=== PATIENT | male | born 1950 | race Caucasian/White ===

== ENCOUNTER 2019-06-25 06:13 | Inpatient (IN) | payer OTHER ==
[~2019-06-25] VITALS: Ht 175.3 cm; Wt 99.8 kg
[2019-06-25] MEDS ORDERED: LEVOFLOXACIN 500 MG/D5W 100 ML IV ONE (07:00)
[2019-06-25] MEDS ORDERED: fentaNYL CITRATE/PF 100 MCG/2 ML AMP IVP PRN ×2 (09:00)
[2019-06-25] MEDS ORDERED: ONDANSETRON HCL 4 MG/2 ML VIAL IVP PRN ×2 (09:00→15:15)
[2019-06-25] MEDS ORDERED: DEXAMETHASONE SOD PHOSPHATE 4 MG/ML VIAL ONE (11:35)
[2019-06-25] MEDS ORDERED: ROCURONIUM BROMIDE 10 MG/ML (ZEMURON) ONE (11:35)
[2019-06-25] MEDS ORDERED: MUPIROCIN 2% TOPICAL OINTMENT 22 GM ONE (11:35)
[2019-06-25] MEDS ORDERED: ONDANSETRON HCL 4 MG/2 ML VIAL ONE (11:35)
[2019-06-25] MEDS ORDERED: MIDAZOLAM HCL 5 MG/ML VIAL (VERSED) IV ONE (11:35)
[2019-06-25] MEDS ORDERED: PROPOFOL 200MG/ 20ML VIAL (DIPRIVAN) IV ONE (11:35)
[2019-06-25] MEDS ORDERED: fentaNYL CITRATE/PF 100 MCG/2 ML AMP ONE (11:35)
[2019-06-25] MEDS ORDERED: LR 1,000 ML IV.SOLN IV ONE (11:35)
[2019-06-25] MEDS ORDERED: SEVOFLURANE 15 MIN GAS INH ONE (11:35)
[2019-06-25 12:30] VITALS: BP_SYST 128
[2019-06-25 12:40] VITALS: BP_SYST 128
--- NOTE | 2019-06-25 12:40 | NUR ---
Notes- Received pt form Recovery awake, alert and oriented, Family at bedside. Dressing on the nose is dry and intact. Denies any pain at this time. Oriented to environment and call light use. Safety precaution observed. Enc. to call for help as needed. will monitor.
[2019-06-25] MEDS ORDERED: LOSA100T3 PO (12:51)
[2019-06-25] MEDS ORDERED: GLYB5TAB7 PO (12:51)
[2019-06-25] MEDS ORDERED: RANI-362 PO (12:51)
[2019-06-25] MEDS ORDERED: TAMS-11 PO (12:51)
[2019-06-25] MEDS ORDERED: GLUXR500 PO (12:51)
[2019-06-25] MEDS ORDERED: SOTA80TA PO (12:51)
[2019-06-25] MEDS ORDERED: ASPI-1153 PO (12:51)
[2019-06-25] MEDS ORDERED: LIP10 PO (12:51)
[2019-06-25 13:04] VITALS: BP_SYST 128
--- NOTE | 2019-06-25 14:48 | NUR ---
CONSULTATION PAGED/CALLED Reason for Consultation: [] AFIB Person Who was Notified: [] MARCOS Consulting Physician: [] DR Ander NOYOLA Franchise Specialist Specialty: [] CARDIO Ordering Physician: [] DR Tyson MCGOVERN
--- NOTE | 2019-06-25 15:00 | NUR ---
notes- started clear liquid, no nausea and vomiting noted.
[2019-06-25] MEDS ORDERED: traMADol HCL HCL 50 MG TABLET (ULTRAM) PO PRN ×2 (15:15)
[2019-06-25] MEDS ORDERED: DEXTROSE 50% JECT 50 ML DISP.SYRIN IVP PRN (15:15)
[2019-06-25] MEDS ORDERED: LACTOBACILLUS RHAMNOSUS GG 1 CAP CAPSULE PO ONE (15:15)
[2019-06-25] MEDS ORDERED: ACETAMINOPHEN 325 MG TABLET PO PRN (15:15)
[2019-06-25] MEDS ORDERED: AMOXICILLIN/CLAVULANATE POTASSIUM 875 MG TABLET PO ONE (15:15)
[2019-06-25] MEDS ORDERED: ZOLPIDEM TARTRATE 5 MG TABLET PO PRN (15:30)
--- NOTE | 2019-06-25 16:15 | NUR ---
Notes- Resting in bed, dressing on the nose is dry and intact. Denies any pain or discomfort at this time. Enc. to call for help as needed.
[2019-06-25 16:28] LABS: BASOPHILS % (AUTO) 0.1 % (0.0-2.0); HEMATOCRIT 38.8 % (36-54); LYMPHOCYTES # (AUTO) 0.8 K/uL (1.0-5.5); LYMPHOCYTES % (AUTO) 7.2 % (20.5-51.5); MEAN CORPUSCULAR HEMOGLOBIN 31 pg (27-31); MEAN CORPUSCULAR HGB CONC 34 % (32-36); MEAN CORPUSCULAR VOLUME 92 fL (79.0-98.0); MONOCYTES # (AUTO) 0.2 K/uL (0.0-1.0); MONOCYTES % (AUTO) 1.8 % (1.7-9.3); NEUTROPHILS # (AUTO) 10.6 K/uL (1.8-7.7); NEUTROPHILS % (AUTO) 90.9 % (40.0-70.0); PLATELET COUNT (AUTO) 184 K/uL (130-430); RED BLOOD CELL COUNT(AUTO) 4.22 MIL/uL (4.2-6.2); RED CELL DISTRIBUTION WIDTH 17.2 % (9.0-15.0); WHITE BLOOD COUNT (AUTO) 11.7 K/uL (4.8-10.8)
[2019-06-25 16:31] LABS: CALCIUM 8.9 mg/dL (8.4-11.0); CREATININE 1.8 mg/dL (0.55-1.30)
[2019-06-25 17:04] VITALS: BP_SYST 120
[2019-06-25] MEDS: glyBURIDE 5 MG TABLET PO SCH (17:19)
[2019-06-25] MEDS: metFORMIN HCL 500 MG TABLET PO SCH (17:19)
[2019-06-25] MEDS: INSULIN REGULAR, HUMAN 100 UNITS/ML, 10 ML VIAL (humuLIN R) SUBCUT PRN ×2 (17:21→20:45)
--- NOTE | 2019-06-25 18:35 | NUR ---
Notes- IN bed, dressing change on the nose. Noted small amount of blood. No active bleeding noted. Pain is controlled at this time. All needs meet. Will endorse.
[2019-06-25 19:55] VITALS: BP_SYST 135
--- NOTE | 2019-06-25 19:55 | NUR ---
INITIAL NOTES AT INITIAL ASSESSMENT, PATIENT IS RESTING IN BED, STABLE, NO SIGNS OF RESPIRATORY DISTRESS. PATIENT VERBALIZES NO PAIN. PLAN OF CARE FOR THE EVENING IS COMMUNICATED WITH THE PATIENT. PATIENT SUCCESSFULLY DEMONSTRATES USAGE OF CALL LIGHT AT THIS TIME. BED IS LOCKED, ALARMED, AND AT THE LOWEST LEVEL. FALL, SAFETY, RESPIRATORY, AND ASPIRATION PRECAUTIONS WILL BE TAKEN THROUGHOUT THE SHIFT.
[2019-06-25] MEDS: AMOXICILLIN/CLAVULANATE POTASSIUM 875 MG TABLET PO SCH (20:31)
[2019-06-25] MEDS: SOTALOL HCL 80 MG TABLET PO SCH (20:32)
[2019-06-25] MEDS: FAMOTIDINE 20 MG TABLET PO SCH (20:32)
[2019-06-25] MEDS: LACTOBACILLUS RHAMNOSUS GG 1 CAP CAPSULE PO SCH (20:32)
--- NOTE | 2019-06-25 21:55 | NUR ---
WOUND CARE & PICC LINE DRESSING CHANGE WOUND CARE PERFORMED AT THIS TIME, PATIENT TOLERATED WELL. HE IS REPOSITIONED FOR COMFORT. CALL LIGHT PLACED WITHIN REACH. BED IS LOCKED, ALARMED, AND AT THE LOWEST LEVEL.
--- NOTE | 2019-06-25 22:00 | NUR ---
INCENTIVE SPIROMETER TEACHING PATIENT SUCCESSFULLY DEMONSTRATES USAGE OF INCENTIVE SPIROMETER AT THIS TIME. HE IS AVERAGING AROUND 3000 ML, HE VERBALIZES KNOWLEDGE TO "PRACTICE 10 TIMES AN HOUR". WILL CONTINUE TO ENCOURAGE THROUGHOUT THE SHIFT. HIS OXYGEN SATURATION IS 99% ON ROOM AIR AT THIS TIME.
--- NOTE | 2019-06-25 23:55 | NUR ---
NOTE PATIENT IS SLEEPING, STABLE, NO SIGNS OF RESPIRATORY DISTRESS. CALL LIGHT IS WITHIN REACH. BED IS LOCKED, ALARMED, AND AT THE LOWEST LEVEL.
[2019-06-26] VITALS: BP_SYST 127
--- NOTE | 2019-06-26 01:55 | NUR ---
NOTE PRN MEDICATION GIVEN FOR PATIENT'S INSOMNIA COMPLAINT. HE IS STABLE, NO SIGNS OF RESPIRATORY DISTRESS. CALL LIGHT IS WITHIN REACH. BED IS LOCKED, ALARMED, AND AT THE LOWEST LEVEL.
--- NOTE | 2019-06-26 03:55 | NUR ---
NOTE PATIENT IS SLEEPING, STABLE, NO SIGNS OF RESPIRATORY DISTRESS. CALL LIGHT IS WITHIN REACH. BED IS LOCKED, ALARMED, AND AT THE LOWEST LEVEL.
--- NOTE | 2019-06-26 05:30 | NUR ---
NOTE PATIENT IS SLEEPING, STABLE, NO SIGNS OF RESPIRATORY DISTRESS. CALL LIGHT IS WITHIN REACH. BED IS LOCKED, ALARMED, AND AT THE LOWEST LEVEL.
[2019-06-26] MEDS: glyBURIDE 5 MG TABLET PO SCH (06:02)
--- NOTE | 2019-06-26 06:42 | NUR ---
CLOSING NOTE BLOOD SUGAR CHECK AT THIS TIME REQUIRES NO INSULIN COVERAGE PER SSI ORDERED BY MD. AT THIS TIME, PATIENT IS RESTING IN BED, STABLE, NO SIGNS OF RESPIRATORY DISTRESS. CALL LIGHT IS WITHIN REACH. BED IS LOCKED, ALARMED, AND AT THE LOWEST LEVEL. FALL, SAFETY, AND RESPIRATORY PRECAUTIONS HAVE BEEN TAKEN THROUGHOUT THE SHIFT. WILL CONTINUE TO MONITOR UNTIL SHIFT REPORT IS GIVEN AT BEDSIDE TO AM NURSE.
--- NOTE | 2019-06-26 07:10 | NUR ---
OPENING NOTE: Received SBAR report and plan of care from retail shift leader RN
[2019-06-26 08:00] VITALS: BP_SYST 119
[2019-06-26 08:45] LABS: EOSINOPHILS % (AUTO) 0.1 % (0.0-4.0); HEMATOCRIT 35.8 % (36-54); LYMPHOCYTES # (AUTO) 1.4 K/uL (1.0-5.5); LYMPHOCYTES % (AUTO) 9.4 % (20.5-51.5); MEAN CORPUSCULAR HEMOGLOBIN 31 pg (27-31); MEAN CORPUSCULAR HGB CONC 34 % (32-36); MEAN CORPUSCULAR VOLUME 92 fL (79.0-98.0); MONOCYTES % (AUTO) 6.5 % (1.7-9.3); NEUTROPHILS # (AUTO) 12.7 K/uL (1.8-7.7); PLATELET COUNT (AUTO) 208 K/uL (130-430); RED BLOOD CELL COUNT(AUTO) 3.89 MIL/uL (4.2-6.2); RED CELL DISTRIBUTION WIDTH 16.9 % (9.0-15.0); WHITE BLOOD COUNT (AUTO) 15.1 K/uL (4.8-10.8)
[2019-06-26] MEDS ORDERED: TAMSULOSIN HCL 0.4 MG CAP PO SCH (09:00)
[2019-06-26] MEDS ORDERED: ATORVASTATIN 10 MG TABLET PO SCH (09:00)
[2019-06-26] MEDS ORDERED: LOSARTAN POTASSIUM 50 MG TABLET (COZAAR) PO SCH (09:00)
[2019-06-26] MEDS ORDERED: ASPIRIN 81 MG TABLET(ECOTRIN) PO SCH (09:00)
--- NOTE | 2019-06-26 09:00 | NUR ---
RN ROUNDS: Patient remains AOx4, verbal and ambulatory. Patient denies chest pain, denies SOB, has no complaint at this time. Lungs clear to auscultation, breathing is even and unlabored, no signs of distress noted.
[2019-06-26 09:08] LABS: ALBUMIN 3.2 g/dL (3.4-4.8); CALCIUM 9.2 mg/dL (8.4-11.0); CREATININE 1.63 mg/dL (0.55-1.30); FREE T4 (FREE THYROXINE) 0.9 ng/dl (0.8-1.5); POTASSIUM 4.7 mmol/L (3.5-5.1); THYROID STIMULATING HORMONE 1.86 uIu/mL (0.36-3.74); TOTAL BILIRUBIN 0.6 mg/dL (0.0-1.0)
[2019-06-26] MEDS: AMOXICILLIN/CLAVULANATE POTASSIUM 875 MG TABLET PO SCH (09:37)
[2019-06-26] MEDS: LACTOBACILLUS RHAMNOSUS GG 1 CAP CAPSULE PO SCH (09:37)
[2019-06-26] MEDS: FAMOTIDINE 20 MG TABLET PO SCH (09:37)
[2019-06-26] MEDS: SOTALOL HCL 80 MG TABLET PO SCH (09:38)
[2019-06-26] MEDS: metFORMIN HCL 500 MG TABLET PO SCH (09:39)
--- NOTE | 2019-06-26 10:31 | NUR ---
Nutrition Update Abdulkadir Scale 18 noted. Pt admitted for chronic pansinusitis. Diet: clear liquid BMI: 32.5 kg/m2 RD to follow per nutrition care standards.
--- NOTE | 2019-06-26 11:00 | NUR ---
RN ROUNDS: Patient awake, AOx4, is at bedside visiting. Cleaned surgical wound with normal saline, covered with dry dressing.
[2019-06-26] MEDS: INSULIN REGULAR, HUMAN 100 UNITS/ML, 10 ML VIAL (humuLIN R) SUBCUT PRN (12:09)
[2019-06-26] MEDS ORDERED: CIPR-211 PO (13:00)
--- NOTE | 2019-06-26 13:00 | NUR ---
RN ROUNDS: Patient remains AAOx4, verbal and ambulatory. No complaint of discomfort of any kind. is at bedside visiting and waiting for discharge instructions. Vital signs stable, breathing even and unlabored, no signs of distress noted.
[2019-06-26] MEDS ORDERED: HYDR-4272 PO (13:01)
[2019-06-26 13:08] VITALS: BP_SYST 110
--- NOTE | 2019-06-26 14:00 | NUR ---
D/C Patient Patient given medication reconciliation form and D/C instructions. Exit Care provided. Patient verbalized understanding. MD discussed with patient the results and treatment provided. Ambulatory with steady gait for discharge to home. Patient in stable condition, ID band removed. IV catheter removed, intact and dressing applied, no active bleeding. Rx of Cipro and [place] given. Patient educated on pain management. All belongings sent with patient.
--- NOTE | 2019-07-19 15:31 | NUR ---
Discharge Follow Up Call: SS attempted to phone pt on 07/14 and left voicemail but no call back received. No further call needed at this time.
== END 2019-06-26 14:00 | disposition home or self-care (01) | DRG 131 ==
LOC: SDS 06:13 → SMU 07:12 → SDS 08:52 → STU 09:11
PROVIDERS: ADMIT Otolaryngology; ATTEND Otolaryngology
PROC: 0NBG4ZZ Excision of Left Ethmoid Bone, Percutaneous Endoscopic Approach (ICD-10-PCS; 2019-06-25)
PROC: 09TL8ZZ Resection of Nasal Turbinate, Via Natural or Artificial Opening Endoscopic (ICD-10-PCS; 2019-06-25)
PROC: 0NBF4ZZ Excision of Right Ethmoid Bone, Percutaneous Endoscopic Approach (ICD-10-PCS; 2019-06-25)
PROC: 099 Ear, Nose, Sinus, Drainage (ICD-10-PCS; 2019-06-25)
PROC: 099W8ZZ Drainage of Right Sphenoid Sinus, Via Natural or Artificial Opening Endoscopic (ICD-10-PCS; 2019-06-25)
PROC: 099T8ZZ Drainage of Left Frontal Sinus, Via Natural or Artificial Opening Endoscopic (ICD-10-PCS; 2019-06-25)
PROC: 099S8ZZ Drainage of Right Frontal Sinus, Via Natural or Artificial Opening Endoscopic (ICD-10-PCS; 2019-06-25)
PROC: 099R8ZZ Drainage of Left Maxillary Sinus, Via Natural or Artificial Opening Endoscopic (ICD-10-PCS; 2019-06-25)
PROC: 099W8ZZ Drainage of Right Sphenoid Sinus, Via Natural or Artificial Opening Endoscopic (ICD-10-PCS; 2019-06-25)
PROC: 099X8ZZ Drainage of Left Sphenoid Sinus, Via Natural or Artificial Opening Endoscopic (ICD-10-PCS; 2019-06-25)
PROC: 099Q8ZZ Drainage of Right Maxillary Sinus, Via Natural or Artificial Opening Endoscopic (ICD-10-PCS; 2019-06-25)
PROC: 09BM8ZZ Excision of Nasal Septum, Via Natural or Artificial Opening Endoscopic (ICD-10-PCS; principal; 2019-06-25 07:30)
DX: J32.9 Chronic sinusitis, unspecified (principal); N17.0 Acute kidney failure with tubular necrosis; D68.59 Other primary thrombophilia; J32.4 Chronic pansinusitis; E11.22 Type 2 diabetes mellitus with diabetic chronic kidney disease; J32.0 Chronic maxillary sinusitis; R09.81 Nasal congestion; E11.40 Type 2 diabetes mellitus with diabetic neuropathy, unspecified; N40.0 Benign prostatic hyperplasia without lower urinary tract symptoms; E78.5 Hyperlipidemia, unspecified; I48.0 Paroxysmal atrial fibrillation; N18.3 Chronic kidney disease, stage 3 (moderate); I12.9 Hypertensive chronic kidney disease with stage 1 through stage 4 chronic kidney disease, or unspecified chronic kidney disease; Z96.641 Presence of right artificial hip joint; Z96.651 Presence of right artificial knee joint; Z82.49 Family history of ischemic heart disease and other diseases of the circulatory system; Z83.3 Family history of diabetes mellitus; Z79.82 Long term (current) use of aspirin; Z79.899 Other long term (current) drug therapy; Z79.84 Long term (current) use of oral hypoglycemic drugs
CPT/HCPCS: 36415; 80048; 80053; 80061; 82962; 83735-TC; 84132-TC; 84439; 84443-TC; 85025; 87070; 87070-TC; 87075-TC; 87101; 87186-TC; 87205-TC; 88305; 88311; 93005; C1726; G0378; J1100; J1815; J2250; J2405; J2704; J3010; J7120

== ENCOUNTER 2023-03-07 06:47 | Day surgery (SDC) | payer OTHER ==
[~2023-03-07] VITALS: Ht 175.3 cm; Wt 96.2 kg
[~2023-03-07 06:47] MED LIST: ASPI-1393 PO; CIPR500T5 PO; GLYB5TAB7 PO; HYDR-4272 PO; LIP10 PO; LOSA100T4 PO; RANI-362 PO; SOTA80TA PO; TAMS-11 PO
[2023-03-07 07:58] LABS: ANION GAP 7 (5-15); CALCIUM 8.9 mg/dL (8.4-11.0); CHLORIDE 104 mmol/L (98-107); CREATININE 1.72 mg/dL (0.55-1.30); GLUCOSE 158 mg/dL (70-99); UREA NITROGEN, BLOOD 27 mg/dL (8-21)
[2023-03-07] MEDS ORDERED: DESFLURANE 15 MIN GAS INH ONE (11:02)
[2023-03-07] MEDS ORDERED: LIDOCAINE/EPI MPF 1%1:200000 30 ML VIAL ONE (11:02)
[2023-03-07] MEDS ORDERED: SUGAMMADEX SODIUM 200 MG/2 ML VIAL IV ONE (11:02)
[2023-03-07] MEDS ORDERED: NS 1000 ML IV.SOLN IV ONE (11:02)
[2023-03-07] MEDS ORDERED: ROCURONIUM BROMIDE 10 MG/ML (ZEMURON) ONE (11:02)
[2023-03-07] MEDS ORDERED: LIDOCAINE 2%, 20 ML MDV ONE (11:02)
[2023-03-07] MEDS ORDERED: MIDAZOLAM HCL 2 MG/2 ML VIAL (VERSED) ONE (11:02)
[2023-03-07] MEDS ORDERED: DEXAMETHASONE SOD PHOSPHATE 4 MG/ML VIAL ONE (11:02)
[2023-03-07] MEDS ORDERED: ONDANSETRON HCL 4 MG/2 ML VIAL ONE (11:02)
[2023-03-07] MEDS ORDERED: EPINEPHRINE HCL/PF 1 MG/ML AMP ONE (11:02)
[2023-03-07] MEDS ORDERED: NS IRRIG SOLN 1000 ML IR ONE (11:02)
[2023-03-07] MEDS ORDERED: fentaNYL CITRATE/PF 100 MCG/2 ML AMP ONE (11:02)
[2023-03-07] MEDS ORDERED: WATER FOR IRRIGATION,STERILE 1,000 ML IRRIG.SOLN IR ONE (11:02)
[2023-03-07] MEDS ORDERED: OXYMETAZOLINE HCL 0.05% NASAL SPRAY NS ONE (11:02)
[2023-03-07] MEDS ORDERED: PROPOFOL 200MG/ 20ML VIAL (DIPRIVAN) IV ONE (11:02)
[2023-03-07] MEDS ORDERED: ACETAMINOPHEN I.V. 1000 MG 100 ML IV ONE (11:59)
[2023-03-07] MEDS ORDERED: NACL 0.9% 1,000 ML IV SCH (12:15)
[2023-03-07] MEDS ORDERED: MEPERIDINE HCL/PF 25 MG/ML DISP.SYRIN IVP PRN (12:15)
[2023-03-07] MEDS ORDERED: hydrALAZINE HCL 20 MG/ML VIAL IVP PRN (12:15)
[2023-03-07] MEDS ORDERED: LABETALOL 100 MG/ 20ML VIAL IVP PRN (12:15)
[2023-03-07] MEDS ORDERED: METOCLOPRAMIDE HCL 10 MG/2 ML VIAL IVP PRN (12:15)
[2023-03-07] MEDS ORDERED: HYDROmorphone 1 MG/ML INJ. CARTRIDGE IVP PRN ×2 (12:15)
[2023-03-07 16:57] VITALS: BP_SYST 136
== END 2023-03-07 16:53 | disposition home or self-care (01) ==
LOC: SDS 06:47 → SMU 06:50 → SDS 16:53
PROVIDERS: ATTEND Otolaryngology
DX: J32.4 Chronic pansinusitis (principal); D38.5 Neoplasm of uncertain behavior of other respiratory organs; J32.0 Chronic maxillary sinusitis; I48.91 Unspecified atrial fibrillation; I25.10 Atherosclerotic heart disease of native coronary artery without angina pectoris; I12.9 Hypertensive chronic kidney disease with stage 1 through stage 4 chronic kidney disease, or unspecified chronic kidney disease; N18.30 Chronic kidney disease, stage 3 unspecified; E11.22 Type 2 diabetes mellitus with diabetic chronic kidney disease; G47.33 Obstructive sleep apnea (adult) (pediatric); E66.9 Obesity, unspecified; E11.40 Type 2 diabetes mellitus with diabetic neuropathy, unspecified; H61.23 Impacted cerumen, bilateral; R09.81 Nasal congestion; Z79.899 Other long term (current) drug therapy
CPT/HCPCS: 31298; 31255; 31256; 80048; 82962; 87070; 87075; 87186; 36415; 82948; 87116; 87101; 88160; 88304; 88305; 88311; J3490; J1100; J0171; J2001; J3465; J2405; J2704; J3010; J7030; J0131